=== PATIENT | male | born 1940 | race Caucasian/White ===

== ENCOUNTER → 2017-04-02 | Outpatient (CLI) | payer MEDICARE, OTHER ==
--- NOTE | 2017-04-02 10:06 | MRI ---
EXAM DESCRIPTION: Brain w/wo Contrast CLINICAL HISTORY: 76 years Male, VISION PROBLEMS COMPARISON: Noncontrast CT examination 06/24/2015 TECHNIQUE: Multiplanar multisequence long and short TR sequences without and with contrast enhancement FINDINGS: MRI of the brain before and after contrast enhancement demonstrates a moderate susceptibility artifact in the region of the left orbit of uncertain significance, but with no evidence of restricted diffusion to suggest acute or subacute ischemia. Age-appropriate ventriculomegaly and prominence of the cortical sulci consistent with modest aging is present. Very little white matter signal changes noted except minimally in the left cerebral hemisphere in the supraventricular region. Small solitary nonenhancing area of demyelination consistent with old microvascular disease is suspected The sellar and suprasellar regions are unremarkable with no evidence of mass effect upon the optic chiasm. Postcontrast imaging demonstrates normal meningeal and vascular structures. Tumor mass or metastatic disease or definite abnormality involving the orbits is not apparent. No vascular malformations are noted. Focal gliosis or encephalomalacia along the optic tracts are within the occipital lobes is not apparent. IMPRESSION: 1. Mild age-appropriate atrophic changes with ventriculomegaly and prominence of the cortical sulci with very minimal white matter signal changes of aging and small vessel disease. 2. No specific abnormality along the course of the visual pathways or definite abnormality involving the orbits except for some susceptibility artifact arising in the region of the left orbit of uncertain significance. 3. No abnormal enhancing tumor masses or metastatic disease or vascular malformation is seen. Electronically signed by: Andrew Zafar MD 04/02/2017 10:05 AM CDT
== END | disposition home or self-care (01) ==
LOC: MRI 07:50
DX: H53.9 Unspecified visual disturbance (principal)

== ENCOUNTER → 2017-04-23 | Outpatient (CLI) | payer MEDICARE, OTHER ==
--- NOTE | 2017-04-24 09:46 | CT ---
EXAM DESCRIPTION: CT ABDOMEN AND PELVIS WITHOUT AND WITH CONTRAST CLINICAL HISTORY: GASTRIC CANCER, MALIGNANT NEOPLASM OF STOMACH COMPARISON: April 28, 2015 TECHNIQUE: CT of the abdomen and pelvis are performed prior to and during IV bolus administration nonionic contrast. Oral contrast enhancement was not utilized. This exam was performed according to our departmental dose-optimization program, which includes automated exposure control, adjustment of the mA and/or kV according to patient size and/or use of iterative reconstruction technique. FINDINGS: A very small left and a moderate right pleural effusion is present with mild compressive atelectasis at the right lung base. Pulmonary metastatic nodules at the lung bases is not apparent and heart size remains small and normal. The liver is now markedly abnormal with multiple predominantly cystic a moderate to very large masses with a small amount of either internal hemorrhage or solid component in the largest estimated approximate 15 cm cystic mass in the anterior dome of the right lobe of the liver. Hepatic metastatic disease is strongly suspected. Mild abdominal ascites has developed in the left upper quadrant. Gallbladder is surgically absent and significant ductal dilation is are not apparent. 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 The pancreas is severely atrophic with an approximate 2 cm cystic lesion at the tip of the tail of the pancreas, unchanged from 2015. No evidence of small or large bowel obstruction is seen. Within the pelvis small amount of fluid in the presacral space or posterior pelvic cavity is present and new from prior study as well is predominant left-sided ascites extending into the left upper quadrant and continuing into caudally in the left paracolic gutter and the left flank region. Possibility of mesenteric involvement with a neoplasm should strongly be considered. Matted loops of bowel cephalad to the bladder with loss of the normal mesenteric a fatty soft tissue planes suggestive of mesenteric or and/or intraperitoneal involvement with neoplasm. Small amount of contrast within the thick walled poorly distended bladder is noted without evidence of a renal hydronephrosis with bilateral parapelvic cyst formation that is little changed from prior study. No solid renal masses or perinephric stranding is evident. The aorta is atherosclerotic without aneurysm and significant glomerate retroperitoneal adenopathy is not apparent except for a mildly enlarged lymph node at the aortic bifurcation in the preaortic retroperitoneum estimated at approximately 2 cm in maximal length with several additional smaller subcentimeter and subcentimeter root of mesentery lymph nodes noted. Degenerative changes in the spine without aggressive destructive process is noted. A sclerotic inferior L1 compression deformity is new from 2015 and most consistent with a healing compression deformity with metastatic disease thought unlikely but not entirely excluded. IMPRESSION: 1. Marked deterioration of the scan since prior study with a small left and moderate right pleural effusion, suspicious for the possibility of pleural metastatic disease without distinct mass is noted. 2. Markedly abnormal liver with the multiple small and occluding one extremely large cystic mass within the right lobe of the liver with an internal soft tissue component or hemorrhagic component consistent with hepatic metastatic disease and all new from prior study. 3. 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 4. New small to mildly enlarged retroperitoneal and root of mesentery lymphadenopathy just anterior to the aortic bifurcation, not evident in 2015. 5. Bilateral renal parapelvic cysts with no evidence of tumor involvement or obstruction. 6. Posterior pelvic fluid, most likely in the presacral perirectal space suspicious for the possibility of tumor involvement in this location without a well-defined or large mass. 7. The anterior abdominal wall is intact. 8. Interval development of inferior endplate L1 compression deformity with secondary sclerosis that is most suspicious for a healing compression deformity. Metastatic disease is considered unlikely but not entirely excluded. Electronically signed by: Andrew Zafar MD 04/24/2017 9:45 AM CDT
== END | disposition home or self-care (01) ==
LOC: CT 09:06
PROVIDERS: ATTEND Family Medicine
DX: C16.9 Malignant neoplasm of stomach, unspecified (principal)